=== PATIENT | male | born 1975 | race Caucasian/White ===

== ENCOUNTER 2018-11-19 10:00 | Outpatient (RCR) | payer MEDICAID, SELFPAY ==
[2018-11-05 10:12] VITALS: BP 158/88; PULSE 90; RESP 18; TEMP 36.6; BMI 50.1
--- NOTE | 2018-11-05 19:42 | PCM.WC.HP ---
(1) Cellulitis of right lower leg Status: Acute Current Visit: Yes Code(s): L03.115 - Cellulitis of right lower limb (2) Ulcer of right lower extremity with fat layer exposed Status: Chronic Current Visit: Yes Code(s): L97.912 - Non-pressure chronic ulcer of unspecified part of right lower leg with fat layer exposed (3) Ulcer of left lower extremity with fat layer exposed Status: Chronic Current Visit: Yes Code(s): L97.922 - Non-pressure chronic ulcer of unspecified part of left lower leg with fat layer exposed (4) Stasis dermatitis of both legs Status: Chronic Current Visit: Yes Code(s): I87.2 - Venous insufficiency (chronic) (peripheral) (5) Morbid obesity Status: Chronic Current Visit: Yes Code(s): E66.01 - Morbid (severe) obesity due to excess calories (6) Venous insufficiency of both lower extremities Status: Acute Current Visit: Yes Code(s): I87.2 - Venous insufficiency (chronic) (peripheral) History of Present Illness Chief Complaint: Bilateral lower extremity ulcers. History of Wound: Mr. Wild is a 43-year-old who was referred to the wound center due to nonhealing bilateral lower extremity ulcers. Reports worsening lower extremity swelling and intermittent ulceration which has been ongoing for about 6 months however a week ago, noticed significant swelling, redness and pain of his right lower extremity for which he presented to [facility] in [place]. Was managed as a case of cellulitis. Discharged to [facility] home on Keflex and doxycycline. Reports compliance with his medications. Right lower extremity pain and redness still present but said to be improving. He denies chills, fever or otherwise feeling of unwell. Past Medical History Past Medical History: Chronic Problems Ulcer of right lower extremity with fat layer exposed (Chronic) Ulcer of left lower extremity with fat layer exposed (Chronic) Stasis dermatitis of both legs (Chronic) Morbid obesity (Chronic) Allergies/Adverse Reactions: Allergies No Known Allergies Allergy (Verified 11/05/18 09:59) Home Medications: Ambulatory Orders Medication Instructions Recorded Acetaminophen [Tylenol] 325 mg PO Q6H PRN PRN 11/05/18 Argin/Glut/Cahmb/Collag/Mv-Min 1 each PO DAILY 11/05/18 [Meet Packet] Cephalexin [Keflex] 500 mg PO Q8 11/05/18 Doxycycline 100 mg PO BID 11/05/18 Enoxaparin [Lovenox] 40 mg SC DAILY@0600 11/05/18 Ferrous Sulfate [Iron] 325 mg PO DAILY 11/05/18 Silver Sulfadiazine 1% Crm 1 applic TOPICAL DAILY 11/05/18 [Silvadene ([facility])] Smoking Status: Never smoker Review of Systems Constitutional: Denies: Anorexia, Chills, Fever Eyes: Denies: Blurred vision, Pain HEENT: Denies: Difficulty Swallowing Cardiovascular: Denies: Chest Pain, Chest Tightness Respiratory: Denies: Hemoptysis Gastrointestinal: Denies: Abdominal Pain, Hematemesis, Vomiting Genitourinary: Denies: Hematuria Skin: Denies: Jaundice - Physical Exam Vital Signs Temp Pulse Resp BP 98 F 90 18 158/88 H 11/05/18 10:12 11/05/18 10:12 11/05/18 10:12 11/05/18 10:12 General: Alert, Oriented x3, Cooperative, No apparent distress HEENT: Atraumatic, Normocephalic Oral: Moist Mucosa Neck: Supple Lungs: Normal air movement Cardiovascular: Regular rate, Regular Rhythm, Normal S1, Normal S2 Abdomen: Non Tender, Obese Extremities: No cyanosis, Edema Skin: Ulcer/ Wound Wound Measurements and Assessment WC - Nurse 1 - General Ulcer Measurement Start: 11/05/18 09:59 Freq: Status: Active Protocol: Activity Type Activity Date Activity User E-Sign Co-Sign Detail Recorded Client Recorded Date Recorded By Document 11/05/18 10:12 [facility] [id number] 11/05/18 10:38 [facility] 11/05/18 10:12 Wound Center Nurse 1 [Ulcer Assessment] #2- LLE POST CLUSTER -Combined with other wound No -Current Size (cm) - Length 0.8 -Current Size (cm) - Width 1 -Current Size (cm) - Depth 0.1 -Total Square Cm 0.8 -Date of Last Picture (Recall this 11/05/18 field) -Photo Taken No -Epithelialization None Present -Tunneling No -Undermining/Tunneling No -Circular Undermining No -Exudate Amt Small -Exudate Type Serosanguineous -Wound Margin Flat & Intact -Granulation Amt Small (1-33%) -Granulation Quality [place] -Slough/Fibrin Yes -Necrosis Amt Large (67-100%) -Necrotic Tissue Type Adherent Slough -Texture (Nohelia-wound Skin Appearance) Assessed Scarring -Moisture (Nohelia-wound Skin Appearance Assessed ) Maceration Weeping -Color (Nohelia-wound Skin Appearance) Assessed Erythema Mottled -Temperature (Nohelia-wound Skin No Abnormality Appearance) (Pt Warm) -Tenderness on Palpation (Nohelia-wound No Skin Appearance) -Ulcer Cleansing Wound Cleanser -Foul Odor after Cleansing No -Anesthetic Used 4% Lidocaine Solution #1- RLE CLUSTER -Combined with other wound No -Current Size (cm) - Length 25.5 -Current Size (cm) - Width 31.5 -Current Size (cm) - Depth 0.1 -Total Square Cm 803.25 -Date of Last Picture (Recall this 11/05/18 field) -Photo Taken Yes -Epithelialization None Present -Tunneling No -Undermining/Tunneling No -Circular Undermining No -Exudate Amt Large -Exudate Type Serosanguineous -Wound Margin Flat & Intact -Granulation Amt Large (67-100%) -Granulation Quality Red -Slough/Fibrin Yes -Necrosis Amt Medium (34-66%) -Necrotic Tissue Type Adherent Slough -Texture (Nohelia-wound Skin Appearance) Assessed Excoriation Friable -Moisture (Nohelia-wound Skin Appearance Assessed ) Maceration Weeping -Color (Nohelia-wound Skin Appearance) Assessed Erythema -Temperature (Nohelia-wound Skin No Abnormality Appearance) (Pt Warm) -Tenderness on Palpation (Nohelia-wound No Skin Appearance) -Ulcer Cleansing Wound Cleanser -Foul Odor after Cleansing No -Anesthetic Used 4% Lidocaine Solution [Edema Assessment] -Lower Limb Edema Present Yes -Right Calf (cm) 52 -Right Ankle (cm) 29.5 -Left Calf (cm) 50 -Left Ankle (cm) 25.5 WC - Nurse 2 - General Ulcer CM Notes Start: 11/05/18 09:59 Freq: Status: Active Protocol: Activity Type Activity Date Activity User E-Sign Co-Sign Detail Recorded Client Recorded Date Recorded By Document 11/05/18 11:01 MW [id number] 11/05/18 11:17 MW 11/05/18 11:01 Wound Center Nurse 2 [Procedure/Treatment] #2- LLE POST CLUSTER -Time 11:04 -Correct Patient Yes -Correct Side, Site, Position Yes -Correct Procedure Yes -Procedure Performed Yes -Type of Procedure Debridement -Clinical Debridement Subcutaneous -Post Debridement Size (cm) - Length 1.0 -Post Debridement Size (cm) - Width 1.0 -Post Debridement Size (cm) - Depth 0.1 -Total Square Cm 1.00 -Wound/Ulcer Outcome Not Healed -Ulcer Cleansing Rinsed/ Irrigated with Saline -Foul Odor after Cleansing No -Bioengineered Tissue No -Bleeding Controlled with Pressure -Offloading No -Treatment Response Procedure Tolerated Well #1- RLE CLUSTER -Time 11:10 -Correct Patient Yes -Correct Side, Site, Position Yes -Correct Procedure Yes -Procedure Performed Yes -Type of Procedure Debridement -Clinical Debridement Subcutaneous -Post Debridement Size (cm) - Length 29.0 -Post Debridement Size (cm) - Width 30.0 -Post Debridement Size (cm) - Depth 0.3 -Total Square Cm 870.00 -Wound/Ulcer Outcome Not Healed -Ulcer Cleansing Rinsed/ Irrigated with Saline -Foul Odor after Cleansing No -Bioengineered Tissue No -Bleeding Controlled with Pressure -Offloading No -Treatment Response Procedure Tolerated Well [See Physician Procedure note for Specifics] Pain Scale: 0-10 Numeric [Pain] -Is Patient Pain Free? Yes Musculoskeletal: No Muscle Wasting Neurological: Cranial nerves II-XII grossly intact Psych/Mental Status: Normal Affect Debridement Note Post-Debridement Measurements/Treatment WC - Nurse 2 - General Ulcer CM Notes Start: 11/05/18 09:59 Freq: Status: Active Protocol: Activity Type Activity Date Activity User E-Sign Co-Sign Detail Recorded Client Recorded Date Recorded By Document 11/05/18 11:01 MW [id number] 11/05/18 11:17 MW 11/05/18 11:01 Wound Center Nurse 2 #2- LLE POST CLUSTER -Time 11:04 -Correct Patient Yes -Correct Side, Site, Position Yes -Correct Procedure Yes -Procedure Performed Yes -Type of Procedure Debridement -Clinical Debridement Subcutaneous -Post Debridement Size (cm) - Length 1.0 -Post Debridement Size (cm) - Width 1.0 -Post Debridement Size (cm) - Depth 0.1 -Total Square Cm 1.00 -Wound/Ulcer Outcome Not Healed -Ulcer Cleansing Rinsed/ Irrigated with Saline -Foul Odor after Cleansing No -Bioengineered Tissue No -Bleeding Controlled with Pressure -Offloading No -Treatment Response Procedure Tolerated Well #1- RLE CLUSTER -Time 11:10 -Correct Patient Yes -Correct Side, Site, Position Yes -Correct Procedure Yes -Procedure Performed Yes -Type of Procedure Debridement -Clinical Debridement Subcutaneous -Post Debridement Size (cm) - Length 29.0 -Post Debridement Size (cm) - Width 30.0 -Post Debridement Size (cm) - Depth 0.3 -Total Square Cm 870.00 -Wound/Ulcer Outcome Not Healed -Ulcer Cleansing Rinsed/ Irrigated with Saline -Foul Odor after Cleansing No -Bioengineered Tissue No -Bleeding Controlled with Pressure -Offloading No -Treatment Response Procedure Tolerated Well Pain Scale: 0-10 Numeric Is Patient Pain Free? Yes Wound debrided: Right lower extremity cluster Wound Grade/Stage: Stage II Type of Debridement: Excisional debridement Anesthesia Used: 4% Lidocaine Solution Depth: Down to and including healthy tissue, in the subcutaneous layer Percentage of wound debrided: 100 Instrument Used: 7mm curette Tissue Removed: Slough and devitalized tissue Severity: Fat Layer Exposed Amount of bleeding with debridement: Mild Bleeding Controlled with: Pressure Patient tolerated procedure well - Additional Wound Wound debrided: Left lower extremity posterior Wound Grade/Stage: Stage II Type of Debridement: Excisional debridement Anesthesia Used: 4% Lidocaine Solution Depth: Down to and including healthy tissue, in the subcutaneous layer Percentage of wound debrided: 100 Instrument Used: 3mm curette Tissue Removed: Slough and devitalized tissue Severity: Fat Layer Exposed Amount of bleeding with debridement: Mild Bleeding Controlled with: Pressure Patient tolerated procedure: Patient tolerated procedure well Assessment/Plan Active Problems Cellulitis of right lower leg (Acute) Ulcer of right lower extremity with fat layer exposed (Chronic) Ulcer of left lower extremity with fat layer exposed (Chronic) Stasis dermatitis of both legs (Chronic) Morbid obesity (Chronic) Venous insufficiency of both lower extremities (Acute) Assessment: Same as above. Plan: Debridement done as documented above. Procedure was well-tolerated. Significant ulceration of his right lower extremity most likely due to cellulitis. However, does have evidence of stasis dermatitis. He states that he uses his compression stockings however not as compliant. Still has significant bilateral lower extremity edema. Aquacel extra to both with Adaptic over top. Change daily to twice daily depending on drainage. Osvaldo wraps and Tubigrip for edema management. Strongly advised to elevate his lower extremities when seated and in bed. Currently on Meet, he was encouraged to take this at least twice daily. Exercise and weight loss recommended. Venous and arterial studies ordered. Complete course of antibiotics. He had the opportunity to ask questions which were answered. He was advised to call with any further questions or concerns. Follow-up in 1 week.
--- NOTE | 2018-11-05 19:46 | HP.PCM_ITS ---
(1) Cellulitis of right lower leg Status: Acute Current Visit: Yes Code(s): L03.115 - Cellulitis of right lower limb (2) Ulcer of right lower extremity with fat layer exposed Status: Chronic Current Visit: Yes Code(s): L97.912 - Non-pressure chronic ulcer of unspecified part of right lower leg with fat layer exposed (3) Ulcer of left lower extremity with fat layer exposed Status: Chronic Current Visit: Yes Code(s): L97.922 - Non-pressure chronic ulcer of unspecified part of left lower leg with fat layer exposed (4) Stasis dermatitis of both legs Status: Chronic Current Visit: Yes Code(s): I87.2 - Venous insufficiency (chronic) (peripheral) (5) Morbid obesity Status: Chronic Current Visit: Yes Code(s): E66.01 - Morbid (severe) obesity due to excess calories (6) Venous insufficiency of both lower extremities Status: Acute Current Visit: Yes Code(s): I87.2 - Venous insufficiency (chronic) (peripheral) History of Present Illness Chief Complaint: Bilateral lower extremity ulcers. History of Wound: Mr. Wild is a 43-year-old who was referred to the wound center due to nonhealing bilateral lower extremity ulcers. Reports worsening lo wer extremity swelling and intermittent ulceration which has been ongoing for about 6 months however a week ago, noticed significant swelling, redness and pain of his right lower extremity for which he presented to [facility] in [place]. Was managed as a case of cellulitis. Discharged to [facility] home on Keflex and doxycycline. Reports compliance with his medications. Right lower extremity pain and redness still present but said to be improving. He denies chills, fever or otherwise feeling of unwell. Past Medical History Past Medical History: Chronic Problems Ulcer of right lower extremity with fat layer exposed (Chronic) Ulcer of left lower extremity with fat layer exposed (Chronic) Stasis dermatitis of both legs (Chronic) Morbid obesity (Chronic) Allergies/Adverse Reactions: Allergies No Known Allergies Allergy (Verified 11/05/18 09:59) Home Medications: Ambulatory Orders Medication Instructions Recorded Acetaminophen [Tylenol] 325 mg PO Q6H PRN PRN 11/05/18 Argin/Glut/Cahmb/Collag/Mv-Min 1 each PO DAILY 11/05/18 [Meet Packet] Cephalexin [Keflex] 500 mg PO Q8 11/05/18 Doxycycline 100 mg PO BID 11/05/18 Enoxaparin [Lovenox] 40 mg SC DAILY@0600 11/05/18 Ferrous Sulfate [Iron] 325 mg PO DAILY 11/05/18 Silver Sulfadiazine 1% Crm 1 applic TOPICAL DAILY 11/05/18 [Silvadene ([facility])] Smoking Status: Never smoker Review of Systems Constitutional: Denies: Anorexia, Chills, Fever Eyes: Denies: Blurred vision, Pain HEENT: Denies: Difficulty Swallowing Cardiovascular: Denies: Chest Pain, Chest Tightness Respiratory: Denies: Hemoptysis Gastrointestinal: Denies: Abdominal Pain, Hematemesis, Vomiting Genitourinary: Denies: Hematuria Skin: Denies: Jaundice - Physical Exam Vital Signs Temp Pulse Resp BP 98 F 90 18 158/88 H 11/05/18 10:12 11/05/18 10:12 11/05/18 10:12 11/05/18 10:12 General: Alert, Oriented x3, Cooperative, No apparent distress HEENT: Atraumatic, Normocephalic Oral: Moist Mucosa Neck: Supple Lungs: Normal air movement Cardiovascular: Regular rate, Regular Rhythm, Normal S1, Normal S2 Abdomen: Non Tender, Obese Extremities: No cyanosis, Edema Skin: Ulcer/ Wound Wound Measurements and Assessment WC - Nurse 1 - General Ulcer Measurement Start: 11/05/18 09:59 Freq: Status: Active Protocol: Activity Type Activity Date Activity User E-Sign Co-Sign Detail Recorded Client Recorded Date Recorded By Document 11/05/18 10:12 [facility] [id number] 11/05/18 10:38 [facility] 11/05/18 10:12 Wound Center Nurse 1 [Ulcer Assessment] #2- LLE POST CLUSTER -Combined with other wound No -Current Size (cm) - Length 0.8 -Current Size (cm) - Width 1 -Current Size (cm) - Depth 0.1 -Total Square Cm 0.8 -Date of Last Picture (Recall this 11/05/18 field) -Photo Taken No -Epithelialization None Present -Tunneling No -Undermining/Tunneling No -Circular Undermining No -Exudate Amt Small -Exudate Type Serosanguineous -Wound Margin Flat & Intact -Granulation Amt Small (1-33%) -Granulation Quality [place] -Slough/Fibrin Yes -Necrosis Amt Large (67-100%) -Necrotic Tissue Type Adherent Slough -Texture (Nohelia-wound Skin Appearance) Assessed Scarring -Moisture (Nohelia-wound Skin Appearance Assessed ) Maceration Weeping -Color (Nohelia-wound Skin Appearance) Assessed Erythema Mottled -Temperature (Nohelia-wound Skin No Abnormality Appearance) (Pt Warm) -Tenderness on Palpation (Nohelia-wound No Skin Appearance) -Ulcer Cleansing Wound Cleanser -Foul Odor after Cleansing No -Anesthetic Used 4% Lidocaine Solution #1- RLE CLUSTER -Combined with other wound No -Current Size (cm) - Length 25.5 -Current Size (cm) - Width 31.5 -Current Size (cm) - Depth 0.1 -Total Square Cm 803.25 -Date of Last Picture (Recall this 11/05/18 field) -Photo Taken Yes -Epithelialization None Present -Tunneling No -Undermining/Tunneling No -Circular Undermining No -Exudate Amt Large -Exudate Type Serosanguineous -Wound Margin Flat & Intact -Granulation Amt Large (67-100%) -Granulation Quality Red -Slough/Fibrin Yes -Necrosis Amt Medium (34-66%) -Necrotic Tissue Type Adherent Slough -Texture (Nohelia-wound Skin Appearance) Assessed Excoriation Friable -Moisture (Nohelai-wound Skin Appearance Assessed ) Maceration Weeping -Color (Nohelia-wound Skin Appearance) Assessed Erythema -Temperature (Nohelia-wound Skin No Abnormality Appearance) (Pt Warm) -Tenderness on Palpation (Nohelia-wound No Skin Appearance) -Ulcer Cleansing Wound Cleanser -Foul Odor after Cleansing No -Anesthetic Used 4% Lidocaine Solution [Edema Assessment] -Lower Limb Edema Present Yes -Right Calf (cm) 52 -Right Ankle (cm) 29.5 -Left Calf (cm) 50 -Left Ankle (cm) 25.5 WC - Nurse 2 - General Ulcer CM Notes Start: 11/05/18 09:59 Freq: Status: Active Protocol: Activity Type Activity Date Activity User E-Sign Co-Sign Detail Recorded Client Recorded Date Recorded By Document 11/05/18 11:01 MW [id number] 11/05/18 11:17 MW 11/05/18 11:01 Wound Center Nurse 2 [Procedure/Treatment] #2- LLE POST CLUSTER -Time 11:04 -Correct Patient Yes -Correct Side, Site, Position Yes -Correct Procedure Yes -Procedure Performed Yes -Type of Procedure Debridement -Clinical Debridement Subcutaneous -Post Debridement Size (cm) - Length 1.0 -Post Debridement Size (cm) - Width 1.0 -Post Debridement Size (cm) - Depth 0.1 -Total Square Cm 1.00 -Wound/Ulcer Outcome Not Healed -Ulcer Cleansing Rinsed/ Irrigated with Saline -Foul Odor after Cleansing No -Bioengineered Tissue No -Bleeding Controlled with Pressure -Offloading No -Treatment Response Procedure Tolerated Well #1- RLE CLUSTER -Time 11:10 -Correct Patient Yes -Correct Side, Site, Position Yes -Correct Procedure Yes -Procedure Performed Yes -Type of Procedure Debridement -Clinical Debridement Subcutaneous -Post Debridement Size (cm) - Length 29.0 -Post Debridement Size (cm) - Width 30.0 -Post Debridement Size (cm) - Depth 0.3 -Total Square Cm 870.00 -Wound/Ulcer Outcome Not Healed -Ulcer Cleansing Rinsed/ Irrigated with Saline -Foul Odor after Cleansing No -Bioengineered Tissue No -Bleeding Controlled with Pressure -Offloading No -Treatment Response Procedure Tolerated Well [See Physician Procedure note for Specifics] Pain Scale: 0-10 Numeric [Pain] -Is Patient Pain Free? Yes Musculoskeletal: No Muscle Wasting Neurological: Cranial nerves II-XII grossly intact Psych/Mental Status: Normal Affect Debridement Note Post-Debridement Measurements/Treatment WC - Nurse 2 - General Ulcer CM Notes Start: 11/05/18 09:59 Freq: Status: Active Protocol: Activity Type Activity Date Activity User E-Sign Co-Sign Detail Recorded Client Recorded Date Recorded By Document 11/05/18 11:01 MW [id number] 11/05/18 11:17 MW 11/05/18 11:01 Wound Center Nurse 2 #2- LLE POST CLUSTER -Time 11:04 -Correct Patient Yes -Correct Side, Site, Position Yes -Correct Procedure Yes -Procedure Performed Yes -Type of Procedure Debridement -Clinical Debridement Subcutaneous -Post Debridement Size (cm) - Length 1.0 -Post Debridement Size (cm) - Width 1.0 -Post Debridement Size (cm) - Depth 0.1 -Total Square Cm 1.00 -Wound/Ulcer Outcome Not Healed -Ulcer Cleansing Rinsed/ Irrigated with Saline -Foul Odor after Cleansing No -Bioengineered Tissue No -Bleeding Controlled with Pressure -Offloading No -Treatment Response Procedure Tolerated Well #1- RLE CLUSTER -Time 11:10 -Correct Patient Yes -Correct Side, Site, Position Yes -Correct Procedure Yes -Procedure Performed Yes -Type of Procedure Debridement -Clinical Debridement Subcutaneous -Post Debridement Size (cm) - Length 29.0 -Post Debridement Size (cm) - Width 30.0 -Post Debridement Size (cm) - Depth 0.3 -Total Square Cm 870.00 -Wound/Ulcer Outcome Not Healed -Ulcer Cleansing Rinsed/ Irrigated with Saline -Foul Odor after Cleansing No -Bioengineered Tissue No -Bleeding Controlled with Pressure -Offloading No -Treatment Response Procedure Tolerated Well Pain Scale: 0-10 Numeric Is Patient Pain Free? Yes Wound debrided: Right lower extremity cluster Wound Grade/Stage: Stage II Type of Debridement: Excisional debridement Anesthesia Used: 4% Lidocaine Solution Depth: Down to and including healthy tissue, in the subcutaneous layer Percentage of wound debrided: 100 Instrument Used: 7mm curette Tissue Removed: Slough and devitalized tissue Severity: Fat Layer Exposed Amount of bleeding with debridement: Mild Bleeding Controlled with: Pressure Patient tolerated procedure well - Additional Wound Wound debrided: Left lower extremity posterior Wound Grade/Stage: Stage II Type of Debridement: Excisional debridement Anesthesia Used: 4% Lidocaine Solution Depth: Down to and including healthy tissue, in the subcutaneous layer Percentage of wound debrided: 100 Instrument Used: 3mm curette Tissue Removed: Slough and devitalized tissue Severity: Fat Layer Exposed Amount of bleeding with debridement: Mild Bleeding Controlled with: Pressure Patient tolerated procedure: Patient tolerated procedure well Assessment/Plan Active Problems Cellulitis of right lower leg (Acute) Ulcer of right lower extremity with fat layer exposed (Chronic) Ulcer of left lower extremity with fat layer exposed (Chronic) Stasis dermatitis of both legs (Chronic) Morbid obesity (Chronic) Venous insufficiency of both lower extremities (Acute) Assessment: Same as above. Plan: Debridement done as documented above. Procedure was well-tolerated. Significant ulceration of his right lower extremity most likely due to cellulitis. However, does have evidence of stasis dermatitis. He states that he uses his compression stockings however not as compliant. Still has significant bilateral lower extremity edema. Aquacel extra to both with Adaptic over top. Change daily to twice daily depending on drainage. Osvaldo wraps and Tubigrip for edema management. Strongly advised to elevate his lower extremiti es when seated and in bed. Currently on Meet, he was encouraged to take this at least twice daily. Exercise and weight loss recommended. Venous and arterial studies ordered. Complete course of antibiotics. He had the opportunity to ask questions which were answered. He was advised to call with any further questions or concerns. Follow-up in 1 week.
[2018-11-12 10:59] VITALS: BP 145/93; PULSE 124; RESP 18; TEMP 36.8; BMI 50.1
--- NOTE | 2018-11-12 11:13 | PCM.WC.PN ---
(1) Cellulitis of right lower leg Status: Acute Current Visit: Yes Code(s): L03.115 - Cellulitis of right lower limb (2) Ulcer of right lower extremity with fat layer exposed Status: Chronic Current Visit: Yes Code(s): L97.912 - Non-pressure chronic ulcer of unspecified part of right lower leg with fat layer exposed (3) Ulcer of left lower extremity with fat layer exposed Status: Chronic Current Visit: Yes Code(s): L97.922 - Non-pressure chronic ulcer of unspecified part of left lower leg with fat layer exposed (4) Stasis dermatitis of both legs Status: Chronic Current Visit: Yes Code(s): I87.2 - Venous insufficiency (chronic) (peripheral) (5) Morbid obesity Status: Chronic Current Visit: Yes Code(s): E66.01 - Morbid (severe) obesity due to excess calories (6) Venous insufficiency of both lower extremities Status: Acute Current Visit: Yes Code(s): I87.2 - Venous insufficiency (chronic) (peripheral) Type of Wound Chief Complaint: Bilateral lower extremity ulcers. History of Wound: Mr. Wild is a 43-year-old who was referred to the wound center due to nonhealing bilateral lower extremity ulcers. Reports worsening lower extremity swelling and intermittent ulceration which has been ongoing for about 6 months however a week ago, noticed significant swelling, redness and pain of his right lower extremity for which he presented to [facility] in [place]. Was managed as a case of cellulitis. Discharged to [facility] home on Keflex and doxycycline. Reports compliance with his medications. Right lower extremity pain and redness still present but said to be improving. He denies chills, fever or otherwise feeling of unwell. Progress of Wound: Improving. No new concerns at this time. - Physical Exam Vital Signs Temp Pulse Resp BP 98.2 F 124 H 18 145/93 H 11/12/18 10:59 11/12/18 10:59 11/12/18 10:59 11/12/18 10:59 General: Alert, Oriented x3, Cooperative, No apparent distress HEENT: Atraumatic, Normocephalic Oral: Moist Mucosa Neck: Supple Lungs: Normal air movement Abdomen: Obese Skin: Ulcer/ Wound Wound Measurements and Assessment WC - Nurse 1 - General Ulcer Measurement Start: 11/05/18 09:59 Freq: Status: Active Protocol: Activity Type Activity Date Activity User E-Sign Co-Sign Detail Recorded Client Recorded Date Recorded By Document 11/12/18 10:59 DV [id number] 11/12/18 11:03 DV 11/12/18 10:59 Wound Center Nurse 1 [Ulcer Assessment] #2- LLE POST CLUSTER -Combined with other wound No -Current Size (cm) - Length 1.0 -Current Size (cm) - Width 1.0 -Current Size (cm) - Depth 0.1 -Total Square Cm 1.00 -Photo Taken No -Epithelialization None Present -Tunneling No -Undermining/Tunneling No -Circular Undermining No -Granulation Amt None Present (0 %) -Granulation Quality N/A -Slough/Fibrin Yes -Necrosis Amt Large (67-100%) -Necrotic Tissue Type Adherent Slough -Structure Exposed None/Limited to Skin Breakdown -Texture (Nohelia-wound Skin Appearance) Assessed Localized Edema -Moisture (Nohelia-wound Skin Appearance Assessed ) Dry/Scaly -Color (Nohelia-wound Skin Appearance) Assessed Hemosiderin Staining -Ulcer Cleansing Rinsed/ Irrigated with Saline -Foul Odor after Cleansing No -Anesthetic Used 4% Lidocaine Solution #1- RLE CLUSTER -Combined with other wound No -Current Size (cm) - Length 28.0 -Current Size (cm) - Width 30.0 -Current Size (cm) - Depth 0.1 -Total Square Cm 840.00 -Photo Taken No -Epithelialization None Present -Tunneling No -Undermining/Tunneling No -Circular Undermining No -Classification - Thickness Full Thickness without Exposed Support Structure -Exudate Amt Small -Exudate Type Serosanguineous -Wound Margin Indistinct, Non -Visible -Granulation Amt None Present (0 %) -Granulation Quality N/A -Slough/Fibrin Yes -Necrosis Amt Large (67-100%) -Necrotic Tissue Type Adherent Slough -Structure Exposed None/Limited to Skin Breakdown -Texture (Nohelia-wound Skin Appearance) Assessed Localized Edema Scarring -Moisture (Nohelia-wound Skin Appearance Assessed ) Dry/Scaly -Color (Nohelia-wound Skin Appearance) Assessed Hemosiderin Staining -Temperature (Nohelia-wound Skin No Abnormality Appearance) (Pt Warm) -Tenderness on Palpation (Nohelia-wound No Skin Appearance) -Ulcer Cleansing Rinsed/ Irrigated with Saline -Foul Odor after Cleansing No -Anesthetic Used 4% Lidocaine Solution WC - Nurse 2 - General Ulcer CM Notes Start: 11/05/18 09:59 Freq: Status: Active Protocol: Activity Type Activity Date Activity User E-Sign Co-Sign Detail Recorded Client Recorded Date Recorded By Document 11/12/18 10:58 MW [id number] 11/12/18 11:11 MW 11/12/18 10:58 Wound Center Nurse 2 [Procedure/Treatment] #2- LLE POST CLUSTER -Time 11:00 -Correct Patient Yes -Correct Side, Site, Position Yes -Correct Procedure Yes -Procedure Performed Yes -Type of Procedure Debridement -Clinical Debridement Subcutaneous -Post Debridement Size (cm) - Length 0.3 -Post Debridement Size (cm) - Width 0.4 -Post Debridement Size (cm) - Depth 0.1 -Total Square Cm 0.12 -Wound/Ulcer Outcome Not Healed -Ulcer Cleansing Rinsed/ Irrigated with Saline -Foul Odor after Cleansing No -Bioengineered Tissue No -Bleeding Controlled with Pressure -Offloading No -Treatment Response Procedure Tolerated Well #1- RLE CLUSTER -Time 11:01 -Correct Patient Yes -Correct Side, Site, Position Yes -Correct Procedure Yes -Procedure Performed Yes -Type of Procedure Debridement -Clinical Debridement Subcutaneous Selective -Post Debridement Size (cm) - Length 19.0 -Post Debridement Size (cm) - Width 14.0 -Post Debridement Size (cm) - Depth 0.1 -Total Square Cm 266.00 -Wound/Ulcer Outcome Not Healed -Ulcer Cleansing Rinsed/ Irrigated with Saline -Foul Odor after Cleansing No -Bioengineered Tissue No -Bleeding Controlled with Pressure [See Physician Procedure note for Specifics] Pain Scale: 0-10 Numeric [Pain] -Is Patient Pain Free? Yes Musculoskeletal: No Muscle Wasting Neurological: Cranial nerves II-XII grossly intact Psych/Mental Status: Normal Affect Debridement Note Post-Debridement Measurements/Treatment COLE - Nurse 2 - General Ulcer CM Notes Start: 11/05/18 09:59 Freq: Status: Active Protocol: Activity Type Activity Date Activity User E-Sign Co-Sign Detail Recorded Client Recorded Date Recorded By Document 11/05/18 11:01 MW [id number] 11/05/18 11:17 MW Document 11/12/18 10:58 MW [id number] 11/12/18 11:11 MW 11/05/18 11/12/18 11:01 10:58 Wound Center Nurse 2 #2- LLE POST CLUSTER -Time 11:04 11:00 -Correct Patient Yes Yes -Correct Side, Site, Position Yes Yes -Correct Procedure Yes Yes -Procedure Performed Yes Yes -Type of Procedure Debridement Debridement -Clinical Debridement Subcutaneous Subcutaneous -Post Debridement Size (cm) - Length 1.0 0.3 -Post Debridement Size (cm) - Width 1.0 0.4 -Post Debridement Size (cm) - Depth 0.1 0.1 -Total Square Cm 1.00 0.12 -Wound/Ulcer Outcome Not Healed Not Healed -Ulcer Cleansing Rinsed/ Rinsed/ Irrigated with Irrigated with Saline Saline -Foul Odor after Cleansing No No -Bioengineered Tissue No No -Bleeding Controlled with Pressure Pressure -Offloading No No -Treatment Response Procedure Procedure Tolerated Well Tolerated Well #1- RLE CLUSTER -Time 11:10 11:01 -Correct Patient Yes Yes -Correct Side, Site, Position Yes Yes -Correct Procedure Yes Yes -Procedure Performed Yes Yes -Type of Procedure Debridement Debridement -Clinical Debridement Subcutaneous Subcutaneous Selective -Post Debridement Size (cm) - Length 29.0 19.0 -Post Debridement Size (cm) - Width 30.0 14.0 -Post Debridement Size (cm) - Depth 0.3 0.1 -Total Square Cm 870.00 266.00 -Wound/Ulcer Outcome Not Healed Not Healed -Ulcer Cleansing Rinsed/ Rinsed/ Irrigated with Irrigated with Saline Saline -Foul Odor after Cleansing No No -Bioengineered Tissue No No -Bleeding Controlled with Pressure Pressure -Offloading No -Treatment Response Procedure Tolerated Well Pain Scale: 0-10 Numeric Is Patient Pain Free? Yes Yes Wound debrided: Right lower extremity Type of Debridement: Selective debridement Anesthesia Used: 4% Lidocaine Solution Depth: Down to and including healthy tissue Percentage of wound debrided: 80 Instrument Used: Forceps Tissue Removed: Devitalized tissue Severity: Limited To Skin Breakdown Amount of bleeding with debridement: Mild Bleeding Controlled with: Pressure Patient tolerated procedure well - Additional Wound Wound debrided: Left lower extremity posterior Wound Grade/Stage: Stage II Type of Debridement: Excisional debridement Anesthesia Used: 4% Lidocaine Solution Depth: Down to and including healthy tissue, in the subcutaneous layer Percentage of wound debrided: 100 Instrument Used: 3mm curette Tissue Removed: Slough and devitalized tissue Severity: Fat Layer Exposed Amount of bleeding with debridement: Mild Bleeding Controlled with: Pressure Assessment/Plan Active Problems Cellulitis of right lower leg (Acute) Ulcer of right lower extremity with fat layer exposed (Chronic) Ulcer of left lower extremity with fat layer exposed (Chronic) Stasis dermatitis of both legs (Chronic) Morbid obesity (Chronic) Venous insufficiency of both lower extremities (Acute) Assessment: Same as above. Plan: Debridement done as documented above. Procedure was well-tolerated. Significant improvement noted in the past week. Continue Aquacel with Adaptic to left lower extremity. Change daily. Clean right lower extremity twice daily, copious petroleum jelly with Adaptic over top, covered with gauze then Tubigrip's and Osvaldo wraps for edema management. Strongly advised to elevate his lower extremities when seated and in bed. Currently on Meet, he was encouraged to take this at least twice daily. Exercise and weight loss recommended. All his questions were answered and he was advised to call with any further questions or concerns. Follow-up in 1 week.
--- NOTE | 2018-11-12 11:17 | PN.PCM_ITS ---
(1) Cellulitis of right lower leg Status: Acute Current Visit: Yes Code(s): L03.115 - Cellulitis of right lower limb (2) Ulcer of right lower extremity with fat layer exposed Status: Chronic Current Visit: Yes Code(s): L97.912 - Non-pressure chronic ulcer of unspecified part of right lower leg with fat layer exposed (3) Ulcer of left lower extremity with fat layer exposed Status: Chronic Current Visit: Yes Code(s): L97.922 - Non-pressure chronic ulcer of unspecified part of left lower leg with fat layer exposed (4) Stasis dermatitis of both legs Status: Chronic Current Visit: Yes Code(s): I87.2 - Venous insufficiency (chronic) (peripheral) (5) Morbid obesity Status: Chronic Current Visit: Yes Code(s): E66.01 - Morbid (severe) obesity due to excess calories (6) Venous insufficiency of both lower extremities Status: Acute Current Visit: Yes Code(s): I87.2 - Venous insufficiency (chronic) (peripheral) Type of Wound Chief Complaint: Bilateral lower extremity ulcers. History of Wound: Mr. Wild is a 43-year-old who was referred to the wound center due to nonhealing bilateral lower extremity ulcers. Reports worsening lower extremity swelling and intermittent ulceration which has been ongoing for about 6 months however a week ago, noticed significant swelling, redness and pain of his right lower extremity for which he presented to [facility] in [place]. Was managed as a case of cellulitis. Discharged to [facility] home on Keflex and doxycycline. Reports compliance with his medications. Right lower extremity pain and redness still present but said to be improving. He denies chills, fever or otherwise feeling of unwell. Progress of Wound: Improving. No new concerns at this time. - Physical Exam Vital Signs Temp Pulse Resp BP 98.2 F 124 H 18 145/93 H 11/12/18 10:59 11/12/18 10:59 11/12/18 10:59 11/12/18 10:59 General: Alert, Oriented x3, Cooperative, No apparent distress HEENT: Atraumatic, Normocephalic Oral: Moist Mucosa Neck: Supple Lungs: Normal air movement Abdomen: Obese Skin: Ulcer/ Wound Wound Measurements and Assessment WC - Nurse 1 - General Ulcer Measurement Start: 11/05/18 09:59 Freq: Status: Active Protocol: Activity Type Activity Date Activity User E-Sign Co-Sign Detail Recorded Client Recorded Date Recorded By Document 11/12/18 10:59 DV [id number] 11/12/18 11:03 DV 11/12/18 10:59 Wound Center Nurse 1 [Ulcer Assessment] #2- LLE POST CLUSTER -Combined with other wound No -Current Size (cm) - Length 1.0 -Current Size (cm) - Width 1.0 -Current Size (cm) - Depth 0.1 -Total Square Cm 1.00 -Photo Taken No -Epithelialization None Present -Tunneling No -Undermining/Tunneling No -Circular Undermining No -Granulation Amt None Present (0 %) -Granulation Quality N/A -Slough/Fibrin Yes -Necrosis Amt Large (67-100%) -Necrotic Tissue Type Adherent Slough -Structure Exposed None/Limited to Skin Breakdown -Texture (Nohelia-wound Skin Appearance) Assessed Localized Edema -Moisture (Nohelia-wound Skin Appearance Assessed ) Dry/Scaly -Color (Nohelia-wound Skin Appearance) Assessed Hemosiderin Staining -Ulcer Cleansing Rinsed/ Irrigated with Saline -Foul Odor after Cleansing No -Anesthetic Used 4% Lidocaine Solution #1- RLE CLUSTER -Combined with other wound No -Current Size (cm) - Length 28.0 -Current Size (cm) - Width 30.0 -Current Size (cm) - Depth 0.1 -Total Square Cm 840.00 -Photo Taken No -Epithelialization None Present -Tunneling No -Undermining/Tunneling No -Circular Undermining No -Classification - Thickness Full Thickness without Exposed Support Structure -Exudate Amt Small -Exudate Type Serosanguineous -Wound Margin Indistinct, Non -Visible -Granulation Amt None Present (0 %) -Granulation Quality N/A -Slough/Fibrin Yes -Necrosis Amt Large (67-100%) -Necrotic Tissue Type Adherent Slough -Structure Exposed None/Limited to Skin Breakdown -Texture (Nohelia-wound Skin Appearance) Assessed Localized Edema Scarring -Moisture (Nohelia-wound Skin Appearance Assessed ) Dry/Scaly -Color (Nohelia-wound Skin Appearance) Assessed Hemosiderin Staining -Temperature (Nohelia-wound Skin No Abnormality Appearance) (Pt Warm) -Tenderness on Palpation (Nohelia-wound No Skin Appearance) -Ulcer Cleansing Rinsed/ Irrigated with Saline -Foul Odor after Cleansing No -Anesthetic Used 4% Lidocaine Solution WC - Nurse 2 - General Ulcer CM Notes Start: 11/05/18 09:59 Freq: Status: Active Protocol: Activity Type Activity Date Activity User E-Sign Co-Sign Detail Recorded Client Recorded Date Recorded By Document 11/12/18 10:58 MW [id number] 11/12/18 11:11 MW 11/12/18 10:58 Wound Center Nurse 2 [Procedure/Treatment] #2- LLE POST CLUSTER -Time 11:00 -Correct Patient Yes -Correct Side, Site, Position Yes -Correct Procedure Yes -Procedure Performed Yes -Type of Procedure Debridement -Clinical Debridement Subcutaneous -Post Debridement Size (cm) - Length 0.3 -Post Debridement Size (cm) - Width 0.4 -Post Debridement Size (cm) - Depth 0.1 -Total Square Cm 0.12 -Wound/Ulcer Outcome Not Healed -Ulcer Cleansing Rinsed/ Irrigated with Saline -Foul Odor after Cleansing No -Bioengineered Tissue No -Bleeding Controlled with Pressure -Offloading No -Treatment Response Procedure Tolerated Well #1- RLE CLUSTER -Time 11:01 -Correct Patient Yes -Correct Side, Site, Position Yes -Correct Procedure Yes -Procedure Performed Yes -Type of Procedure Debridement -Clinical Debridement Subcutaneous Selective -Post Debridement Size (cm) - Length 19.0 -Post Debridement Size (cm) - Width 14.0 -Post Debridement Size (cm) - Depth 0.1 -Total Square Cm 266.00 -Wound/Ulcer Outcome Not Healed -Ulcer Cleansing Rinsed/ Irrigated with Saline -Foul Odor after Cleansing No -Bioengineered Tissue No -Bleeding Controlled with Pressure [See Physician Procedure note for Specifics] Pain Scale: 0-10 Numeric [Pain] -Is Patient Pain Free? Yes Musculoskeletal: No Muscle Wasting Neurological: Cranial nerves II-XII grossly intact Psych/Mental Status: Normal Affect Debridement Note Post-Debridement Measurements/Treatment COLE - Nurse 2 - General Ulcer CM Notes Start: 11/05/18 09:59 Freq: Status: Active Protocol: Activity Type Activity Date Activity User E-Sign Co-Sign Detail Recorded Client Recorded Date Recorded By Document 11/05/18 11:01 MW [id number] 11/05/18 11:17 MW Document 11/12/18 10:58 MW [id number] 11/12/18 11:11 MW 11/05/18 11/12/18 11:01 10:58 Wound Center Nurse 2 #2- LLE POST CLUSTER -Time 11:04 11:00 -Correct Patient Yes Yes -Correct Side, Site, Position Yes Yes -Correct Procedure Yes Yes -Procedure Performed Yes Yes -Type of Procedure Debridement Debridement -Clinical Debridement Subcutaneous Subcutaneous -Post Debridement Size (cm) - Length 1.0 0.3 -Post Debridement Size (cm) - Width 1.0 0.4 -Post Debridement Size (cm) - Depth 0.1 0.1 -Total Square Cm 1.00 0.12 -Wound/Ulcer Outcome Not Healed Not Healed -Ulcer Cleansing Rinsed/ Rinsed/ Irrigated with Irrigated with Saline Saline -Foul Odor after Cleansing No No -Bioengineered Tissue No No -Bleeding Controlled with Pressure Pressure -Offloading No No -Treatment Response Procedure Procedure Tolerated Well Tolerated Well #1- RLE CLUSTER -Time 11:10 11:01 -Correct Patient Yes Yes -Correct Side, Site, Position Yes Yes -Correct Procedure Yes Yes -Procedure Performed Yes Yes -Type of Procedure Debridement Debridement -Clinical Debridement Subcutaneous Subcutaneous Selective -Post Debridement Size (cm) - Length 29.0 19.0 -Post Debridement Size (cm) - Width 30.0 14.0 -Post Debridement Size (cm) - Depth 0.3 0.1 -Total Square Cm 870.00 266.00 -Wound/Ulcer Outcome Not Healed Not Healed -Ulcer Cleansing Rinsed/ Rinsed/ Irrigated with Irrigated with Saline Saline -Foul Odor after Cleansing No No -Bioengineered Tissue No No -Bleeding Controlled with Pressure Pressure -Offloading No -Treatment Response Procedure Tolerated Well Pain Scale: 0-10 Numeric Is Patient Pain Free? Yes Yes Wound debrided: Right lower extremity Type of Debridement: Selective debridement Anesthesia Used: 4% Lidocaine Solution Depth: Down to and including healthy tissue Percentage of wound debrided: 80 Instrument Used: Forceps Tissue Removed: Devitalized tissue Severity: Limited To Skin Breakdown Amount of bleeding with debridement: Mild Bleeding Controlled with: Pressure Patient tolerated procedure well - Additional Wound Wound debrided: Left lower extremity posterior Wound Grade/Stage: Stage II Type of Debridement: Excisional debridement Anesthesia Used: 4% Lidocaine Solution Depth: Down to and including healthy tissue, in the subcutaneous layer Percentage of wound debrided: 100 Instrument Used: 3mm curette Tissue Removed: Slough and devitalized tissue Severity: Fat Layer Exposed Amount of bleeding with debridement: Mild Bleeding Controlled with: Pressure Assessment/Plan Active Problems Cellulitis of right lower leg (Acute) Ulcer of right lower extremity with fat layer exposed (Chronic) Ulcer of left lower extremity with fat layer exposed (Chronic) Stasis dermatitis of both legs (Chronic) Morbid obesity (Chronic) Venous insufficiency of both lower extremities (Acute) Assessment: Same as above. Plan: Debridement done as documented above. Procedure was well-tolerated. Significant improvement noted in the past week. Continue Aquacel with Adaptic to left lower extremity. Change daily. Clean right lower extremity twice daily, copious petroleum jelly with Adaptic over top, covered with gauze then Tubigrip's and Osvaldo wraps for edema management. Strongly advised to elevate his lower extremities when seated and in bed. Currently on Meet, he was encouraged to take this at least twice daily. Exercise and weight loss recommended. All his questions were answered and he was advised to call with any further questions or concerns. Follow-up in 1 week.
--- NOTE | 2018-11-19 07:39 | ART_ITS ---
Reason For Study: Edema Procedure A bilateral lower extremity continuous wave Doppler with analog waveform analysis,segmental pressures,and ankle brachial indexes without exercise. Left Segmental Pressures Left brachial= 137mmHg. Left posterior tibial artery = 161mmHg. Left dorsalis pedis artery = 154mmHg. Left digit = 132 mmHg. The left dorsalis pedis waveforms are triphasic. The left posterior tibial artery waveforms are triphasic. Right Segmental Pressures Right brachial= 133mmHg. Right posterior tibial artery = 165mmHg. Right dorsalis pedis artery = 158mmHg. Right digit = 145 mmHg. The right dorsalis pedis waveforms are triphasic. The right posterior tibial artery waveforms are triphasic. Indices The right ankle brachial index by the dorsalis pedis is 1.15. The right ankle brachial index by the posterior tibial artery is 1.20. The right digital-brachial index is 1.06. The left ankle brachial index by the dorsalis pedis is 1.12. The left ankle brachial index by the posterior tibial artery is 1.18. The left digital-brachial index is 0.96. Interpretation Summary Triphasic Doppler waveforms are noted at ankle level bilaterally. Pulse-volume recording waveform amplitudes appear satisfactory at all levels bilaterally, including calf, ankle, and digital levels. Resting ankle-brachial indices are normal bilaterally. Digital-brachial indices are bilaterally normal. There is no evidence of significant arterial occlusive disease in the lower extremities bilaterally. Ordering Physician: Andree Long Referring Physician: Rhea Perera Performed By: Holly Vazquez RVT
--- NOTE | 2018-11-19 07:39 | VDLE_ITS ---
Reason For Study: Venous Insufficiency RIGHT LEFT CFV is compressible, spontaneous, phasic, CFV is compressible, spontaneous, phasic, competent and demonstrates normal competent, and demonstrates normal augmentation. augmentation. FV is compressible, spontaneous, phasic, FV is compressible, spontaneous, phasic, competent and demonstrates normal competent and demonstrates normal augmentation. augmentation. POP V is compressible, spontaneous, phasic, POP V is compressible, spontaneous, phasic, competent and demonstrates normal competent and demonstrates normal augmentation. augmentation. T/P Trunk is compressible. T/P Trunk is compressible. PTV is compressible. PTV is compressible. RT PerV is compressible. LT PerV is compressible. SFJ is competent. SFJ is competent. GSV above knee is competent. GSV is competent. GSV below knee is INCOMPETENT for greater SSV is INCOMPETENT for greater than 0.5 than 0.5 seconds and measures 0.69 x 0.73 cm. seconds and measures 0.75 x 0.87 cm. ASV 1 below knee is ICOMPETENT for greater than 05 seconds and measures 0.26 x 0.27 cm. ASV 2 below knee is INCOMPETENT for grater than 0.5 seconds and measures 0.21 x 0.30 cm. SSV is competent. Procedure Exam performed in department. Interpretation Summary Deep veins of the lower extremities are bilaterally patent and compressible segmentally. There is no evidence of deep vein thrombosis on either side. Valvular competence appears intact within the proximal deep venous systems bilaterally. The greater saphenous veins appear bilaterally patent and compressible segmentally. Sapheno-femoral junctions are bilaterally competent . The right greater saphenous vein appears competent above the knee. The right greater saphenous vein appears incompetent below the knee. The left greater saphenous vein appears segmentally competent. The right small saphenous vein is patent and competent. The left small saphenous vein is patent and incompetent. Two incompetent accessory saphenous veins are identified below the right knee. Ordering Physician: Andree Long Referring Physician: Rhea Perera Performed By: Holly Vazquez RVT
[2018-11-19 09:48] VITALS: BP 142/97; PULSE 109; RESP 20; TEMP 36.9; BMI 50.1
--- NOTE | 2018-11-19 10:27 | PCM.WC.PN ---
(1) Cellulitis of right lower leg Status: Acute Current Visit: Yes Code(s): L03.115 - Cellulitis of right lower limb (2) Ulcer of right lower extremity with fat layer exposed Status: Chronic Current Visit: Yes Code(s): L97.912 - Non-pressure chronic ulcer of unspecified part of right lower leg with fat layer exposed (3) Ulcer of left lower extremity with fat layer exposed Status: Chronic Current Visit: Yes Code(s): L97.922 - Non-pressure chronic ulcer of unspecified part of left lower leg with fat layer exposed (4) Stasis dermatitis of both legs Status: Chronic Current Visit: Yes Code(s): I87.2 - Venous insufficiency (chronic) (peripheral) (5) Morbid obesity Status: Chronic Current Visit: Yes Code(s): E66.01 - Morbid (severe) obesity due to excess calories (6) Venous insufficiency of both lower extremities Status: Acute Current Visit: Yes Code(s): I87.2 - Venous insufficiency (chronic) (peripheral) Type of Wound Chief Complaint: Bilateral lower extremity ulcers. History of Wound: Mr. Wild is a 43-year-old who was referred to the wound center due to nonhealing bilateral lower extremity ulcers. Reports worsening lower extremity swelling and intermittent ulceration which has been ongoing for about 6 months however a week ago, noticed significant swelling, redness and pain of his right lower extremity for which he presented to [facility] in [place]. Was managed as a case of cellulitis. Discharged to [facility] home on Keflex and doxycycline. Reports compliance with his medications. Right lower extremity pain and redness still present but said to be improving. He denies chills, fever or otherwise feeling of unwell. Progress of Wound: Right lower extremity healed. Left posterior with minimal area left. No new concerns at this time. - Physical Exam Vital Signs Temp Pulse Resp BP 98.4 F 109 H 20 H 142/97 H 11/19/18 09:48 11/19/18 09:48 11/19/18 09:48 11/19/18 09:48 General: Alert, Oriented x3, Cooperative, No apparent distress HEENT: Atraumatic, Normocephalic Oral: Moist Mucosa Neck: Supple Lungs: Normal air movement Abdomen: Non Tender, Obese Extremities: No cyanosis, Edema Skin: Ulcer/ Wound Wound Measurements and Assessment WC - Nurse 1 - General Ulcer Measurement Start: 11/05/18 09:59 Freq: Status: Active Protocol: Activity Type Activity Date Activity User E-Sign Co-Sign Detail Recorded Client Recorded Date Recorded By Document 11/19/18 09:48 RB [id number] 11/19/18 09:55 RB 11/19/18 09:48 Wound Center Nurse 1 [Ulcer Assessment] #2- LLE POST CLUSTER -Current Size (cm) - Length 0.6 -Current Size (cm) - Width 0.4 -Current Size (cm) - Depth 0.1 -Total Square Cm 0.24 -Tunneling No -Undermining/Tunneling No -Circular Undermining No -Exudate Amt None Present -Wound Margin Distinct, Outline Attached -Granulation Amt Small (1-33%) -Granulation Quality [place] -Slough/Fibrin Yes -Necrosis Amt Large (67-100%) -Necrotic Tissue Type Adherent Slough -Structure Exposed N/A -Texture (Nohelia-wound Skin Appearance) Assessed -Moisture (Nohelia-wound Skin Appearance Assessed ) Dry/Scaly -Color (Nohelia-wound Skin Appearance) Assessed -Temperature (Nohelia-wound Skin No Abnormality Appearance) (Pt Warm) -Tenderness on Palpation (Nohelia-wound No Skin Appearance) -Ulcer Cleansing Wound Cleanser -Foul Odor after Cleansing No -Anesthetic Used 5% Lidocaine Gel #1- RLE CLUSTER -Combined with other wound No -Current Size (cm) - Length 0 -Current Size (cm) - Width 0 -Current Size (cm) - Depth 0 -Total Square Cm 0 -Photo Taken Yes -Epithelialization Large 67-100% [Edema Assessment] -Lower Limb Edema Present Yes -Right Calf (cm) 47.5 -Right Ankle (cm) 25.5 -Left Calf (cm) 47.5 -Left Ankle (cm) 26 Musculoskeletal: No Muscle Wasting Neurological: Cranial nerves II-XII grossly intact Psych/Mental Status: Normal Affect Debridement Note Post-Debridement Measurements/Treatment WC - Nurse 2 - General Ulcer CM Notes Start: 11/05/18 09:59 Freq: Status: Active Protocol: Activity Type Activity Date Activity User E-Sign Co-Sign Detail Recorded Client Recorded Date Recorded By Document 11/05/18 11:01 MW [id number] 11/05/18 11:17 MW Document 11/12/18 10:58 MW [id number] 11/12/18 11:11 MW 11/05/18 11/12/18 11:01 10:58 Wound Center Nurse 2 #2- LLE POST CLUSTER -Time 11:04 11:00 -Correct Patient Yes Yes -Correct Side, Site, Position Yes Yes -Correct Procedure Yes Yes -Procedure Performed Yes Yes -Type of Procedure Debridement Debridement -Clinical Debridement Subcutaneous Subcutaneous -Post Debridement Size (cm) - Length 1.0 0.3 -Post Debridement Size (cm) - Width 1.0 0.4 -Post Debridement Size (cm) - Depth 0.1 0.1 -Total Square Cm 1.00 0.12 -Wound/Ulcer Outcome Not Healed Not Healed -Ulcer Cleansing Rinsed/ Rinsed/ Irrigated with Irrigated with Saline Saline -Foul Odor after Cleansing No No -Bioengineered Tissue No No -Bleeding Controlled with Pressure Pressure -Offloading No No -Treatment Response Procedure Procedure Tolerated Well Tolerated Well #1- RLE CLUSTER -Time 11:10 11:01 -Correct Patient Yes Yes -Correct Side, Site, Position Yes Yes -Correct Procedure Yes Yes -Procedure Performed Yes Yes -Type of Procedure Debridement Debridement -Clinical Debridement Subcutaneous Subcutaneous Selective -Post Debridement Size (cm) - Length 29.0 19.0 -Post Debridement Size (cm) - Width 30.0 14.0 -Post Debridement Size (cm) - Depth 0.3 0.1 -Total Square Cm 870.00 266.00 -Wound/Ulcer Outcome Not Healed Not Healed -Ulcer Cleansing Rinsed/ Rinsed/ Irrigated with Irrigated with Saline Saline -Foul Odor after Cleansing No No -Bioengineered Tissue No No -Bleeding Controlled with Pressure Pressure -Offloading No -Treatment Response Procedure Tolerated Well Pain Scale: 0-10 Numeric Is Patient Pain Free? Yes Yes Wound debrided: Left calf Wound Grade/Stage: Stage II Type of Debridement: Selective debridement Anesthesia Used: 4% Lidocaine Solution Depth: Down to and including healthy tissue Percentage of wound debrided: 100 Instrument Used: 3mm curette Tissue Removed: Devitalized tissue Severity: Limited To Skin Breakdown Amount of bleeding with debridement: Mild Bleeding Controlled with: Pressure Patient tolerated procedure well Assessment/Plan Active Problems Cellulitis of right lower leg (Acute) Ulcer of right lower extremity with fat layer exposed (Chronic) Ulcer of left lower extremity with fat layer exposed (Chronic) Stasis dermatitis of both legs (Chronic) Morbid obesity (Chronic) Venous insufficiency of both lower extremities (Acute) Assessment: Same as above. Plan: Debridement done as documented above. Procedure was well-tolerated. Significant improvement noted in the past week. Continue Aquacel with Adaptic to left lower extremity. Change daily. Clean right lower extremity twice daily, copious petroleum jelly with Adaptic over top, covered with gauze then Tubigrip's and Osvaldo wraps for edema management. Strongly advised to elevate his lower extremities when seated and in bed. Currently on Meet, he was encouraged to take this at least twice daily. Exercise and weight loss recommended. All his questions were answered and he was advised to call with any further questions or concerns. Follow-up in 1 week.
--- NOTE | 2018-11-19 10:30 | PN.PCM_ITS ---
(1) Cellulitis of right lower leg Status: Acute Current Visit: Yes Code(s): L03.115 - Cellulitis of right lower limb (2) Ulcer of right lower extremity with fat layer exposed Status: Chronic Current Visit: Yes Code(s): L97.912 - Non-pressure chronic ulcer of unspecified part of right lower leg with fat layer exposed (3) Ulcer of left lower extremity with fat layer exposed Status: Chronic Current Visit: Yes Code(s): L97.922 - Non-pressure chronic ulcer of unspecified part of left lower leg with fat layer exposed (4) Stasis dermatitis of both legs Status: Chronic Current Visit: Yes Code(s): I87.2 - Venous insufficiency (chronic) (peripheral) (5) Morbid obesity Status: Chronic Current Visit: Yes Code(s): E66.01 - Morbid (severe) obesity due to excess calories (6) Venous insufficiency of both lower extremities Status: Acute Current Visit: Yes Code(s): I87.2 - Venous insufficiency (chronic) (peripheral) Type of Wound Chief Complaint: Bilateral lower extremity ulcers. History of Wound: Mr. Wild is a 43-year-old who was referred to the wound center due to nonhealing bilateral lower extremity ulcers. Reports worsening lower extremity swelling and intermittent ulceration which has been ongoing for about 6 months however a week ago, noticed significant swelling, redness and pain of his right lower extremity for which he presented to [facility] in [place]. Was managed as a case of cellulitis. Discharged to [facility] home on Keflex and doxycycline. Reports compliance with his medications. Right lower extremity pain and redness still present but said to be improving. He denies chills, fever or otherwise feeling of unwell. Progress of Wound: Right lower extremity healed. Left posterior with minimal area left. No new concerns at this time. - Physical Exam Vital Signs Temp Pulse Resp BP 98.4 F 109 H 20 H 142/97 H 11/19/18 09:48 11/19/18 09:48 11/19/18 09:48 11/19/18 09:48 General: Alert, Oriented x3, Cooperative, No apparent distress HEENT: Atraumatic, Normocephalic Oral: Moist Mucosa Neck: Supple Lungs: Normal air movement Abdomen: Non Tender, Obese Extremities: No cyanosis, Edema Skin: Ulcer/ Wound Wound Measurements and Assessment WC - Nurse 1 - General Ulcer Measurement Start: 11/05/18 09:59 Freq: Status: Active Protocol: Activity Type Activity Date Activity User E-Sign Co-Sign Detail Recorded Client Recorded Date Recorded By Document 11/19/18 09:48 RB [id number] 11/19/18 09:55 RB 11/19/18 09:48 Wound Center Nurse 1 [Ulcer Assessment] #2- LLE POST CLUSTER -Current Size (cm) - Length 0.6 -Current Size (cm) - Width 0.4 -Current Size (cm) - Depth 0.1 -Total Square Cm 0.24 -Tunneling No -Undermining/Tunneling No -Circular Undermining No -Exudate Amt None Present -Wound Margin Distinct, Outline Attached -Granulation Amt Small (1-33%) -Granulation Quality [place] -Slough/Fibrin Yes -Necrosis Amt Large (67-100%) -Necrotic Tissue Type Adherent Slough -Structure Exposed N/A -Texture (Nohelia-wound Skin Appearance) Assessed -Moisture (Nohelia-wound Skin Appearance Assessed ) Dry/Scaly -Color (Nohelia-wound Skin Appearance) Assessed -Temperature (Nohelia-wound Skin No Abnormality Appearance) (Pt Warm) -Tenderness on Palpation (Nohelia-wound No Skin Appearance) -Ulcer Cleansing Wound Cleanser -Foul Odor after Cleansing No -Anesthetic Used 5% Lidocaine Gel #1- RLE CLUSTER -Combined with other wound No -Current Size (cm) - Length 0 -Current Size (cm) - Width 0 -Current Size (cm) - Depth 0 -Total Square Cm 0 -Photo Taken Yes -Epithelialization Large 67-100% [Edema Assessment] -Lower Limb Edema Present Yes -Right Calf (cm) 47.5 -Right Ankle (cm) 25.5 -Left Calf (cm) 47.5 -Left Ankle (cm) 26 Musculoskeletal: No Muscle Wasting Neurological: Cranial nerves II-XII grossly intact Psych/Mental Status: Normal Affect Debridement Note Post-Debridement Measurements/Treatment WC - Nurse 2 - General Ulcer CM Notes Start: 11/05/18 09:59 Freq: Status: Active Protocol: Activity Type Activity Date Activity User E-Sign Co-Sign Detail Recorded Client Recorded Date Recorded By Document 11/05/18 11:01 MW [id number] 11/05/18 11:17 MW Document 11/12/18 10:58 MW [id number] 11/12/18 11:11 MW 11/05/18 11/12/18 11:01 10:58 Wound Center Nurse 2 #2- LLE POST CLUSTER -Time 11:04 11:00 -Correct Patient Yes Yes -Correct Side, Site, Position Yes Yes -Correct Procedure Yes Yes -Procedure Performed Yes Yes -Type of Procedure Debridement Debridement -Clinical Debridement Subcutaneous Subcutaneous -Post Debridement Size (cm) - Length 1.0 0.3 -Post Debridement Size (cm) - Width 1.0 0.4 -Post Debridement Size (cm) - Depth 0.1 0.1 -Total Square Cm 1.00 0.12 -Wound/Ulcer Outcome Not Healed Not Healed -Ulcer Cleansing Rinsed/ Rinsed/ Irrigated with Irrigated with Saline Saline -Foul Odor after Cleansing No No -Bioengineered Tissue No No -Bleeding Controlled with Pressure Pressure -Offloading No No -Treatment Response Procedure Procedure Tolerated Well Tolerated Well #1- RLE CLUSTER -Time 11:10 11:01 -Correct Patient Yes Yes -Correct Side, Site, Position Yes Yes -Correct Procedure Yes Yes -Procedure Performed Yes Yes -Type of Procedure Debridement Debridement -Clinical Debridement Subcutaneous Subcutaneous Selective -Post Debridement Size (cm) - Length 29.0 19.0 -Post Debridement Size (cm) - Width 30.0 14.0 -Post Debridement Size (cm) - Depth 0.3 0.1 -Total Square Cm 870.00 266.00 -Wound/Ulcer Outcome Not Healed Not Healed -Ulcer Cleansing Rinsed/ Rinsed/ Irrigated with Irrigated with Saline Saline -Foul Odor after Cleansing No No -Bioengineered Tissue No No -Bleeding Controlled with Pressure Pressure -Offloading No -Treatment Response Procedure Tolerated Well Pain Scale: 0-10 Numeric Is Patient Pain Free? Yes Yes Wound debrided: Left calf Wound Grade/Stage: Stage II Type of Debridement: Selective debridement Anesthesia Used: 4% Lidocaine Solution Depth: Down to and including healthy tissue Percentage of wound debrided: 100 Instrument Used: 3mm curette Tissue Removed: Devitalized tissue Severity: Limited To Skin Breakdown Amount of bleeding with debridement: Mild Bleeding Controlled with: Pressure Patient tolerated procedure well Assessment/Plan Active Problems Cellulitis of right lower leg (Acute) Ulcer of right lower extremity with fat layer exposed (Chronic) Ulcer of left lower extremity with fat layer exposed (Chronic) Stasis dermatitis of both legs (Chronic) Morbid obesity (Chronic) Venous insufficiency of both lower extremities (Acute) Assessment: Same as above. Plan: Debridement done as documented above. Procedure was well-tolerated. Significant improvement noted in the past week. Continue Aquacel with Adaptic to left lower extremity. Change daily. Clean right lower extremity twice daily, copious petroleum jelly with Adaptic over top, covered with gauze then Tubigrip's and Osvaldo wraps for edema management. Strongly advised to elevate his lower extremities when seated and in bed. Currently on Meet, he was encouraged to take this at least twice daily. Exercise and weight loss recommended. All his questions were answered and he was advised to call with any further questions or concerns. Follow-up in 1 week.
== END 2018-11-20 23:59 ==
LOC: WC 10:00
PROVIDERS: Family Provider Nurse Practitioner Family; PCP Nurse Practitioner Family; Referring Provider Internal Medicine; Visit Provider Internal Medicine
DX: I87.2 Venous insufficiency (chronic) (peripheral) (principal); E66.01 Morbid (severe) obesity due to excess calories; Z68.43 Body mass index [BMI] 50.0-59.9, adult; Z71.3 Dietary counseling and surveillance; L97.822 Non-pressure chronic ulcer of other part of left lower leg with fat layer exposed; L97.812 Non-pressure chronic ulcer of other part of right lower leg with fat layer exposed; Z79.899 Other long term (current) drug therapy; Z79.01 Long term (current) use of anticoagulants; R60.0 Localized edema
CPT/HCPCS: 11042; 11045; 93923; 93970; 97597; 97598; 99203; G0463

== ENCOUNTER 2018-11-26 08:50 | Outpatient (RCR) | payer MEDICAID, SELFPAY ==
[2018-11-21 01:24] VITALS: BP 142/97; PULSE 109; RESP 20; TEMP 36.9
[2018-11-26 09:21] VITALS: BP 151/101; PULSE 107; RESP 20; TEMP 36.1; BMI 50.1
--- NOTE | 2018-11-26 09:49 | PCM.WC.PN ---
(1) Venous insufficiency of both lower extremities Status: Chronic Current Visit: Yes Code(s): I87.2 - Venous insufficiency (chronic) (peripheral) (2) Morbid obesity Status: Chronic Current Visit: Yes Code(s): E66.01 - Morbid (severe) obesity due to excess calories (3) Stasis dermatitis of both legs Status: Chronic Current Visit: Yes Code(s): I87.2 - Venous insufficiency (chronic) (peripheral) (4) Ulcer of left lower extremity with fat layer exposed Status: Chronic Current Visit: Yes Code(s): L97.922 - Non-pressure chronic ulcer of unspecified part of left lower leg with fat layer exposed (5) Ulcer of right lower extremity with fat layer exposed Status: Chronic Current Visit: Yes Code(s): L97.912 - Non-pressure chronic ulcer of unspecified part of right lower leg with fat layer exposed Type of Wound Chief Complaint: Bilateral lower extremity ulcers. History of Wound: Mr. Wild is a 43-year-old who was referred to the wound center due to nonhealing bilateral lower extremity ulcers. Reports worsening lower extremity swelling and intermittent ulceration which has been ongoing for about 6 months however a week ago, noticed significant swelling, redness and pain of his right lower extremity for which he presented to [facility] in [place]. Was managed as a case of cellulitis. Discharged to [facility] home on Keflex and doxycycline. Reports compliance with his medications. Right lower extremity pain and redness still present but said to be improving. He denies chills, fever or otherwise feeling of unwell. Progress of Wound: Old ulcer are healed. New right lower extremity superfiscial ulcer. - Physical Exam Vital Signs Temp Pulse Resp BP 97 F L 107 H 20 H 151/101 H 11/26/18 09:21 11/26/18 09:21 11/26/18 09:21 11/26/18 09:21 General: Alert, Oriented x3, Cooperative, No apparent distress HEENT: Atraumatic, Normocephalic Oral: Moist Mucosa Neck: Supple Lungs: Normal air movement Abdomen: Non Tender, Obese Extremities: No cyanosis, Edema Skin: Ulcer/ Wound Wound Measurements and Assessment WC - Nurse 1 - General Ulcer Measurement Start: 11/26/18 09:21 Freq: Status: Active Protocol: Activity Type Activity Date Activity User E-Sign Co-Sign Detail Recorded Client Recorded Date Recorded By Document 11/26/18 09:21 RB [id number] 11/26/18 09:25 RB 11/26/18 09:21 Wound Center Nurse 1 [Ulcer Assessment] #2- LLE POST CLUSTER -Combined with other wound No -Current Size (cm) - Length 0.4 -Current Size (cm) - Width 1 -Current Size (cm) - Depth 0.1 -Total Square Cm 0.4 -Tunneling No -Undermining/Tunneling No -Circular Undermining No -Exudate Amt Small -Exudate Type Serosanguineous -Wound Margin Distinct, Outline Attached -Granulation Amt Large (67-100%) -Granulation Quality [place] -Slough/Fibrin Yes -Necrosis Amt Small (1-33%) -Necrotic Tissue Type Adherent Slough -Structure Exposed N/A -Texture (Nohelia-wound Skin Appearance) Assessed -Moisture (Nohelia-wound Skin Appearance Assessed ) -Color (Nohelia-wound Skin Appearance) Assessed -Temperature (Nohelia-wound Skin No Abnormality Appearance) (Pt Warm) -Tenderness on Palpation (Nohelia-wound No Skin Appearance) -Ulcer Cleansing Rinsed/ Irrigated with Saline -Foul Odor after Cleansing No -Anesthetic Used 5% Lidocaine Gel [Edema Assessment] -Lower Limb Edema Present Yes -Right Calf (cm) 50.4 -Right Ankle (cm) 25 -Left Calf (cm) 51 -Left Ankle (cm) 25 WC - Nurse 2 - General Ulcer CM Notes Start: 11/26/18 09:21 Freq: Status: Active Protocol: Activity Type Activity Date Activity User E-Sign Co-Sign Detail Recorded Client Recorded Date Recorded By Document 11/26/18 09:43 [id number] 11/26/18 09:44 MW 11/26/18 09:43 Wound Center Nurse 2 [Procedure/Treatment] #2- LLE POST CLUSTER -Time 09:44 -Correct Patient Yes -Correct Side, Site, Position Yes -Correct Procedure Yes -Procedure Performed No -Post Debridement Size (cm) - Length 0 -Post Debridement Size (cm) - Width 0 -Post Debridement Size (cm) - Depth 0 -Total Square Cm 0 -Wound/Ulcer Outcome Healed- Epithelialized [See Physician Procedure note for Specifics] Musculoskeletal: No Muscle Wasting Neurological: Cranial nerves II-XII grossly intact Psych/Mental Status: Normal Affect Debridement Note Post-Debridement Measurements/Treatment WC - Nurse 2 - General Ulcer CM Notes Start: 11/26/18 09:21 Freq: Status: Active Protocol: Activity Type Activity Date Activity User E-Sign Co-Sign Detail Recorded Client Recorded Date Recorded By Document 11/26/18 09:43 MW [id number] 11/26/18 09:44 MW 11/26/18 09:43 Wound Center Nurse 2 #2- LLE POST CLUSTER -Time 09:44 -Correct Patient Yes -Correct Side, Site, Position Yes -Correct Procedure Yes -Procedure Performed No -Post Debridement Size (cm) - Length 0 -Post Debridement Size (cm) - Width 0 -Post Debridement Size (cm) - Depth 0 -Total Square Cm 0 -Wound/Ulcer Outcome Healed- Epithelialized No debridement was completed today Assessment/Plan Active Problems Ulcer of right lower extremity with fat layer exposed (Chronic) Ulcer of left lower extremity with fat layer exposed (Chronic) Stasis dermatitis of both legs (Chronic) Morbid obesity (Chronic) Venous insufficiency of both lower extremities (Chronic) Assessment: Same as above. Plan: Old ulcers are healed. New superficial skin tear. No debridement needed. aquacel with adaptic overtop. Change daily until healed. Strongly advised to elevate his lower extremities when seated and in bed. Continue [employer] and kun wraps daily. Follow up with PCP for management of Venous Insufficiency. Exercise and weight loss recommended. All his questions were answered and he was advised to call with any further questions or concerns. Discharged from the wound center.
--- NOTE | 2018-11-26 09:55 | PN.PCM_ITS ---
(1) Venous insufficiency of both lower extremities Status: Chronic Current Visit: Yes Code(s): I87.2 - Venous insufficiency (chronic) (peripheral) (2) Morbid obesity Status: Chronic Current Visit: Yes Code(s): E66.01 - Morbid (severe) obesity due to excess calories (3) Stasis dermatitis of both legs Status: Chronic Current Visit: Yes Code(s): I87.2 - Venous insufficiency (chronic) (peripheral) (4) Ulcer of left lower extremity with fat layer exposed Status: Chronic Current Visit: Yes Code(s): L97.922 - Non-pressure chronic ulcer of unspecified part of left lower leg with fat layer exposed (5) Ulcer of right lower extremity with fat layer exposed Status: Chronic Current Visit: Yes Code(s): L97.912 - Non-pressure chronic ulcer of unspecified part of right lower leg with fat layer exposed Type of Wound Chief Complaint: Bilateral lower extremity ulcers. History of Wound: Mr. Wild is a 43-year-old who was referred to the wound center due to nonhealing bilateral lower extremity ulcers. Reports worsening lower extremity swelling and intermittent ulceration which has been ongoing for about 6 months however a week ago, noticed significant swelling, redness and pain of his right lower extremity for which he presented to [facility] in [place]. Was managed as a case of cellulitis. [facility] Keflex and doxycycline. Reports compliance with his medications. Right lower extremity pain and redness still present but said to be improving. He denies chills, fever or otherwise feeling of unwell. Progress of Wound: Old ulcer are healed. New right lower extremity superfiscial ulcer. - Physical Exam Vital Signs Temp Pulse Resp BP 97 F L 107 H 20 H 151/101 H 11/26/18 09:21 11/26/18 09:21 11/26/18 09:21 11/26/18 09:21 General: Alert, Oriented x3, Cooperative, No apparent distress HEENT: Atraumatic, Normocephalic Oral: Moist Mucosa Neck: Supple Lungs: Normal air movement Abdomen: Non Tender, Obese Extremities: No cyanosis, Edema Skin: Ulcer/ Wound Wound Measurements and Assessment WC - Nurse 1 - General Ulcer Measurement Start: 11/26/18 09:21 Freq: Status: Active Protocol: Activity Type Activity Date Activity User E-Sign Co-Sign Detail Recorded Client Recorded Date Recorded By Document 11/26/18 09:21 RB [id number] 11/26/18 09:25 RB 11/26/18 09:21 Wound Center Nurse 1 [Ulcer Assessment] #2- LLE POST CLUSTER -Combined with other wound No -Current Size (cm) - Length 0.4 -Current Size (cm) - Width 1 -Current Size (cm) - Depth 0.1 -Total Square Cm 0.4 -Tunneling No -Undermining/Tunneling No -Circular Undermining No -Exudate Amt Small -Exudate Type Serosanguineous -Wound Margin Distinct, Outline Attached -Granulation Amt Large (67-100%) -Granulation Quality [place] -Slough/Fibrin Yes -Necrosis Amt Small (1-33%) -Necrotic Tissue Type Adherent Slough -Structure Exposed N/A -Texture (Noheila-wound Skin Appearance) Assessed -Moisture (Nohelia-wound Skin Appearance Assessed ) -Color (Nohelia-wound Skin Appearance) Assessed -Temperature (Nohelia-wound Skin No Abnormality Appearance) (Pt Warm) -Tenderness on Palpation (Nohelia-wound No Skin Appearance) -Ulcer Cleansing Rinsed/ Irrigated with Saline -Foul Odor after Cleansing No -Anesthetic Used 5% Lidocaine Gel [Edema Assessment] -Lower Limb Edema Present Yes -Right Calf (cm) 50.4 -Right Ankle (cm) 25 -Left Calf (cm) 51 -Left Ankle (cm) 25 WC - Nurse 2 - General Ulcer CM Notes Start: 11/26/18 09:21 Freq: Status: Active Protocol: Activity Type Activity Date Activity User E-Sign Co-Sign Detail Recorded Client Recorded Date Recorded By Document 11/26/18 09:43 [id number] 11/26/18 09:44 MW 11/26/18 09:43 Wound Center Nurse 2 [Procedure/Treatment] #2- LLE POST CLUSTER -Time 09:44 -Correct Patient Yes -Correct Side, Site, Position Yes -Correct Procedure Yes -Procedure Performed No -Post Debridement Size (cm) - Length 0 -Post Debridement Size (cm) - Width 0 -Post Debridement Size (cm) - Depth 0 -Total Square Cm 0 -Wound/Ulcer Outcome Healed- Epithelialized [See Physician Procedure note for Specifics] Musculoskeletal: No Muscle Wasting Neurological: Cranial nerves II-XII grossly intact Psych/Mental Status: Normal Affect Debridement Note Post-Debridement Measurements/Treatment WC - Nurse 2 - General Ulcer CM Notes Start: 11/26/18 09:21 Freq: Status: Active Protocol: Activity Type Activity Date Activity User E-Sign Co-Sign Detail Recorded Client Recorded Date Recorded By Document 11/26/18 09:43 MW [id number] 11/26/18 09:44 MW 11/26/18 09:43 Wound Center Nurse 2 #2- LLE POST CLUSTER -Time 09:44 -Correct Patient Yes -Correct Side, Site, Position Yes -Correct Procedure Yes -Procedure Performed No -Post Debridement Size (cm) - Length 0 -Post Debridement Size (cm) - Width 0 -Post Debridement Size (cm) - Depth 0 -Total Square Cm 0 -Wound/Ulcer Outcome Healed- Epithelialized No debridement was completed today Assessment/Plan Active Problems Ulcer of right lower extremity with fat layer exposed (Chronic) Ulcer of left lower extremity with fat layer exposed (Chronic) Stasis dermatitis of both legs (Chronic) Morbid obesity (Chronic) Venous insufficiency of both lower extremities (Chronic) Assessment: Same as above. Plan: Old ulcers are healed. New superficial skin tear. No debridement needed. aquacel with adaptic overtop. Change daily until healed. Strongly advised to elevate his lower extremities when seated and in bed. Continue Tubi trauma coordinator and kun wraps daily. Follow up with PCP for management of Venous Insufficiency. Exercise and weight loss recommended. All his questions were answered and he was advised to call with any further questions or concerns. Discharged from the wound center.
== END 2018-12-20 23:59 ==
LOC: WC 08:50
PROVIDERS: Family Provider Nurse Practitioner Family; PCP Nurse Practitioner Family; Referring Provider Internal Medicine; Visit Provider Internal Medicine
DX: Z09 Encounter for follow-up examination after completed treatment for conditions other than malignant neoplasm (principal); I87.2 Venous insufficiency (chronic) (peripheral); E66.01 Morbid (severe) obesity due to excess calories; Z68.43 Body mass index [BMI] 50.0-59.9, adult
CPT/HCPCS: 99213; G0463